=== PATIENT | female | born 1950 | race Caucasian/White ===

== ENCOUNTER → 2016-12-07 | Outpatient (CLI) | payer OTHER ==
[~2016-12-07] MED LIST: ASPIR 8181 M1 PO; ATORVASTATIN CA40 MG PO; AUGMENTIN875 MG PO; BREO ELLIPTA I1 EACH IH; CALCIUM 500 +1 EACH PO; CENTRUM SILV1 TABLET PO; COLACE100 MG PO; COZAAR25 MG PO; DULCOLAX5 MG PO; Ecotrin PO; FLONASE16 G1 BOTH NARES; Feosol PO; INCRUSE ELLI62.5 MCG IH; IRON325 M1 PO; LASIX40 MG PO; LEVAQUIN750 MG PO; LEVOFLOXACIN750 MG PO; LEXAPRO10 MG PO; LIPITOR40 MG PO; LISINOPRIL10 MG PO; LISINOPRIL2.5 MG PO; LOPRESSOR25 MG PO; LOW DOSE ASPIRI81 M1 PO; METOPROLOL SUCC25 MG PO; METOPROLOL TART25 MG PO; OXYCODONE5 MG PO; PERCOCET 5/31 TABLET PO; PHENERGAN25 MG PR; PLAVIX75 MG PO; PRISTIQ100 MG PO; PROAIR HFA8.5 GM IH; PROMETHAZINE HC25 M1 PO; PROTONIX40 M1 PO; PROTONIX40 MG PO; PROVENTIL,2.5 MG/0.5 IH; Pepcid PO; Protonix PO; RANITIDINE HCL150 M1 PO; SERTRALINE HCL100 MG PO; SINGULAIR10 MG PO; SPIRIVA1 INHALATI IH; Senokot S,Pericolace PO; THERAGRAN-M PR1 EAC1 PO; Theragran PO; Toprol XL PO; ULTRAM50 MG PO; VENLAFAXINE225 MG PO; Vicodin,Norco 5/325 PO; ZOFRAN ODT4 MG PO; ZOFRAN4 MG PO; Zoloft PO; predniSONE PO
== END | disposition home or self-care (01) ==
DX: R26.2 Difficulty in walking, not elsewhere classified (principal); M25.562 Pain in left knee; M25.662 Stiffness of left knee, not elsewhere classified; M17.12 Unilateral primary osteoarthritis, left knee; M62.81 Muscle weakness (generalized)
CPT/HCPCS: 97161 GP; 97530 GP

== ENCOUNTER 2017-01-03 22:09 | Inpatient (IN) | payer OTHER ==
[~2017-01-03] VITALS: Ht 157.5 cm; Wt 110.0 kg
[~2017-01-03 22:09] MED LIST changes: -PRISTIQ100 MG PO; +PRISTIQ50 MG PO; +WELLBUTRIN SR150 MG PO
[2017-01-04 07:10] VITALS: BP 115/73
[2017-01-04 12:39] LABS: HEMATOCRIT 40.8 % (36.0-46.0); MCH 30.2 PG (29.0-34.0); MCHC 32.6 G/DL (30.0-36.0); MCV 92.5 FL (83-99); MEAN PLAT.VOLUME 10.1 uM^3 (9.5-12.4); PLATELET COUNT 187 K/uL (156-360); RBC DIS.WIDTH-SD 44.3 % (39-53); RED BLOOD COUNT 4.41 M/uL (3.80-5.20); WHITE BLOOD COUNT 6.7 K/uL (4.1-10.2)
[2017-01-04 12:52] LABS: POINT-OF-CARE METER ID UU13113675; POINT-OF-CARE USER ID STWHLR41
[2017-01-04 17:08] VITALS: BP 138/63
[2017-01-04 23:23] VITALS: BP 174/80
[2017-01-05 04:44] VITALS: BP 180/77
[2017-01-05 07:08] LABS: HEMATOCRIT 43.3 % (36.0-46.0); MCV 89.8 FL (83-99)
[2017-01-05 07:42] LABS: ANION GAP 12 MEQ/L (2-14); CHLORIDE 103 MEQ/L (99-109); GFR ESTIMATE (CALCULATED) > 59 mL/min/; GLUCOSE 153 mg/dL (70-99); SAMPLE HEMOLYSIS CHECK 0; SAMPLE ICTERIC CHECK 0; SAMPLE LIPEMIA CHECK 0; SODIUM 137 MEQ/L (136-147); UREA NITROGEN (BUN) 12 mg/dL (9-23)
[2017-01-05 07:45] VITALS: BP 142/63
[2017-01-05 11:33] VITALS: BP 145/67
[2017-01-05 15:41] VITALS: BP 139/74
[2017-01-06 00:21] VITALS: BP 133/62
[2017-01-06 06:07] LABS: HEMATOCRIT 39.4 % (36.0-46.0); MCV 89.7 FL (83-99)
[2017-01-06 07:54] VITALS: BP 144/69
[2017-01-06] MEDS ORDERED: LOVENOX40 MG/0.4 SC (15:51)
[2017-01-06] MEDS ORDERED: PERCOCET 5/31 TABLET PO (15:53)
[2017-01-06 15:57] VITALS: BP 124/67
== END 2017-01-06 16:38 | DRG 470 ==
LOC: ENRESERV 22:09 → 3EAST 01-04 06:40 → 2SOUTH 01-04 06:40 → ENRESERV 01-04 15:00 → 3EAST 01-04 16:55
PROVIDERS: Orthopaedic Surgery
PROC: 0SRD0J9 Replacement of Left Knee Joint with Synthetic Substitute, Cemented, Open Approach (ICD-10-PCS; principal; 2017-01-04)
DX: M17.12 Unilateral primary osteoarthritis, left knee (principal); J44.9 Chronic obstructive pulmonary disease, unspecified; I11.0 Hypertensive heart disease with heart failure; I50.9 Heart failure, unspecified; I25.10 Atherosclerotic heart disease of native coronary artery without angina pectoris; M81.0 Age-related osteoporosis without current pathological fracture; E11.9 Type 2 diabetes mellitus without complications; K21.9 Gastro-esophageal reflux disease without esophagitis; E78.00 Pure hypercholesterolemia, unspecified; F32.9 Major depressive disorder, single episode, unspecified; E78.5 Hyperlipidemia, unspecified; Z96.651 Presence of right artificial knee joint; Z79.82 Long term (current) use of aspirin; Z87.891 Personal history of nicotine dependence; I25.2 Old myocardial infarction; Z95.5 Presence of coronary angioplasty implant and graft
CPT/HCPCS: 73560; 80048; 82948; 85014; 85018; 85027; 85610; 85730; C1713; J0690; J1170; J1650; J2250; J2405; J3010; J7050; Q0175